=== PATIENT | female | born 2000 | race African-American/Black ===

== ENCOUNTER 2019-01-11 22:17 | Emergency (ER) | payer SELFPAY ==
[~2019-01-11] VITALS: Ht 157 cm; Wt 59.0 kg
[2019-01-11] MEDS ORDERED: LACTATED RINGERS 1,000 ML IV ONE ×2 (22:26→23:05)
[2019-01-11] MEDS ORDERED: ONDANSETRON 4 MG/2 ML (SDV) Z0FRAN IVP ONE (22:30)
[2019-01-11 22:34] LABS: BASOPHILS # (AUTO) 0.1 10^3/uL (0.0-0.1); BASOPHILS % (AUTO) 1 % (0-10); EOSINOPHILS # (AUTO) 0.2 10^3/uL (0.0-0.3); EOSINOPHILS % (AUTO) 2 % (0-10); HEMATOCRIT 35 % (35-52); HEMOGLOBIN 11.2 G/DL (11.5-16.0); LYMPHOCYTES % (AUTO) 33 % (12-44); MEAN CORPUSCULAR HEMOGLOBIN 22 PG (25-34); MEAN CORPUSCULAR HGB CONC 33 G/DL (32-36); MEAN CORPUSCULAR VOLUME 68 FL (80-99); MEAN PLATELET VOLUME 11.7 FL (7.4-10.4); MONOCYTES # (AUTO) 1.2 X 10^3 (0.0-1.0); MONOCYTES % (AUTO) 10 % (0-12); NEUTROPHILS # (AUTO) 6.7 X 10^3 (1.8-7.8); NEUTROPHILS % (AUTO) 55 % (42-75); PLATELET COUNT 357 10^3/uL (130-400); RED CELL DISTRIBUTION WIDTH 16.2 % (10.0-14.5); WHITE BLOOD COUNT 12.1 10^3/uL (4.3-11.0)
[2019-01-11 22:57] LABS: ALANINE AMINOTRANSFERASE 11 U/L (0-55); ALBUMIN 4.5 GM/DL (3.2-4.5); ALKALINE PHOSPHATASE 64 U/L (40-136); AMYLASE 73 U/L (25-125); BILIRUBIN,TOTAL 0.2 MG/DL (0.1-1.0); BUN/CREATININE RATIO 8; CALCIUM 8.9 MG/DL (8.5-10.1); CARBON DIOXIDE 18 MMOL/L (21-32); CHLORIDE 109 MMOL/L (98-107); CREATININE SERUM 0.89 MG/DL (0.60-1.30); GFR ESTIMATED > 60; GLUCOSE 112 MG/DL (70-105); LIPASE 22 U/L (8-78); MAGNESIUM 2.4 MG/DL (1.6-2.4); POTASSIUM 3.1 MMOL/L (3.6-5.0); SALICYLATE < 5.0 MG/DL (5.0-20.0); SODIUM 140 MMOL/L (135-145); TOTAL PROTEIN 7.4 GM/DL (6.4-8.2)
--- NOTE | 2019-01-11 23:03 | ED General ---
General Chief Complaint: Substance Abuse Stated Complaint: ETOH Source of Information: Patient, EMS History of Present Illness Date Seen by Provider: Jan 11, 2019 Time Seen by Provider: 22:23 Initial Comments PT ARRIVES VIA EMS FROM HOME PT IS INTOXICATED PT STATES SHE STARTED DRINKING AROUND 1900 TONIGHT--HAS HAD AT LEAST A LITER OF [place] TONIGHT STATES SHE SMOKED MARIJUANA AT 1500 TODAY PER EMS, PT WENT TO A FRIEND'S HOUSE TONIGHT AND FRIEND HAD REPORTED THAT PT WAS ALREADY DRUNK WHEN SHE ARRIVED THERE. FRIEND DROVE HER HOME, AND PT BEGAN VOMITING IN FRIEND'S CAR, AND VOMITING CONTINUED AFTER SHE GOT HOME PARENTS FOUND HER ON THE BATHROOM FLOOR VOMITING. EMS REPORTED THAT PT VOMITED X 1 IN THEIR PRESENCE. Allergies and Home Medications Allergies Coded Allergies: No Allergy Information Available (Unverified , 01/11/19) Patient Home Medication List Home Medication List Reviewed: Yes Review of Systems Review of Systems Constitutional: other (UNABLE TO OBTAIN RELIABLE HISTORY FROM PT ON ARRIVAL) Gastrointestinal: see HPI, nausea, vomiting : No LMP: Dec 11, 2018 Psychiatric/Neurological: See HPI Past Rejlxbk-Igydqh-Pyusua Hx Past Med/Social Hx: Reviewed and Corrections made Patient Social History Alcohol Use: Occasionally Uses (HEAVY AT TIMES) Recreational Drug Use: Yes (THC) Drug of Choice: THC Recent Foreign Travel: No Contact w/Someone Who Travel: No Past Medical History Surgeries: Yes Adenoidectomy, Tonsillectomy Respiratory: No Cardiac: No Neurological: No : No Reproductive Disorders: No Genitourinary: No Gastrointestinal: No Musculoskeletal: No Endocrine: No HEENT: Yes (S/P T&A) Tonsilitis Cancer: No Psychosocial: No Integumentary: No Blood Disorders: No Physical Exam Vital Signs Capillary Refill : Height, Weight, BMI Height: '" Weight: lbs. oz. kg; BMI Method: General Appearance: Other (KEEPS EYES CLOSED, STRONG ODOR OF ETOH, SHIVERING. PT NOT TALKING ON ARRIVAL) Neck: Normal Inspection Respiratory: Normal Breath Sounds Cardiovascular: Regular Rate, Rhythm, No Murmur Gastrointestinal: Non Tender, Soft Back: No CVA Tenderness Extremity: Normal Inspection Neurologic/Psychiatric: Alert, Oriented x3, No Motor/Sensory Deficits, rag collector II- XII Norm as Tested Skin: Normal Color (PT IS BLACK), Warm/Dry, Other (NO EXTERNAL EVIDENCE OF TRAUMA) Progress/Results/Core Measures Suspected Sepsis SIRS Temperature: Pulse: Respiratory Rate: Laboratory Tests 01/11/19 22:20: White Blood Count 12.1H Blood Pressure / Mean: Laboratory Tests 01/11/19 22:20: Creatinine 0.89, Platelet Count 357, Total Bilirubin 0.2 Results/Orders Lab Results Laboratory Tests Test 01/11/19 22:20 01/11/19 22:59 Range/Units White Blood Count 12.1 H 4.3-11.0 10^3/uL Red Blood Count 5.10 4.35-5.85 10^6/uL Hemoglobin 11.2 L 11.5-16.0 G/DL Hematocrit 35 35-52 % Mean Corpuscular Volume 68 L 80-99 FL Mean Corpuscular Hemoglobin 22 L 25-34 PG Mean Corpuscular Hemoglobin Concent 33 32-36 G/DL Red Cell Distribution Width 16.2 H 10.0-14.5 % Platelet Count 357 130-400 10^3/uL Mean Platelet Volume 11.7 H 7.4-10.4 FL Neutrophils (%) (Auto) 55 42-75 % Lymphocytes (%) (Auto) 33 12-44 % Monocytes (%) (Auto) 10 0-12 % Eosinophils (%) (Auto) 2 0-10 % Basophils (%) (Auto) 1 0-10 % Neutrophils # (Auto) 6.7 1.8-7.8 X 10^3 Lymphocytes # (Auto) 4.0 1.0-4.0 X 10^3 Monocytes # (Auto) 1.2 H 0.0-1.0 X 10^3 Eosinophils # (Auto) 0.2 0.0-0.3 10^3/uL Basophils # (Auto) 0.1 0.0-0.1 10^3/uL Sodium Level 140 135-145 MMOL/L Potassium Level 3.1 L 3.6-5.0 MMOL/L Chloride Level 109 H 98-107 MMOL/L Carbon Dioxide Level 18 L 21-32 MMOL/L Anion Gap 13 5-14 MMOL/L Blood Urea Nitrogen 7 7-18 MG/DL Creatinine 0.89 0.60-1.30 MG/DL Estimat Glomerular Filtration Rate > 60 BUN/Creatinine Ratio 8 Glucose Level 112 H 70-105 MG/DL Calcium Level 8.9 8.5-10.1 MG/DL Corrected Calcium 8.5 8.5-10.1 MG/DL Magnesium Level 2.4 1.6-2.4 MG/DL Total Bilirubin 0.2 0.1-1.0 MG/DL Aspartate Amino Transf (AST/SGOT) 25 5-34 U/L Alanine Aminotransferase (ALT/SGPT) 11 0-55 U/L Alkaline Phosphatase 64 40-136 U/L Total Protein 7.4 6.4-8.2 GM/DL Albumin 4.5 3.2-4.5 GM/DL Amylase Level 73 25-125 U/L Lipase 22 8-78 U/L Serum Test, Qualitative NEGATIVE NEGATIVE Salicylates Level < 5.0 L 5.0-20.0 MG/DL Acetaminophen Level < 10 L 10-30 UG/ML Serum Alcohol 204 H <10 MG/DL Urine Color YELLOW Urine Clarity CLEAR Urine pH 6.5 5-9 Urine Specific [place] 1.010 L 1.016-1.022 Urine Protein NEGATIVE NEGATIVE Urine Glucose (UA) NEGATIVE NEGATIVE Urine Ketones NEGATIVE NEGATIVE Urine Nitrite NEGATIVE NEGATIVE Urine Bilirubin NEGATIVE NEGATIVE Urine Urobilinogen 0.2 < = 1.0 MG/DL Urine Leukocyte Esterase NEGATIVE NEGATIVE Urine RBC (Auto) NEGATIVE NEGATIVE Urine RBC NONE /HPF Urine WBC NONE /HPF Urine Squamous Epithelial Cells RARE /HPF Urine Crystals NONE /LPF Urine Bacteria TRACE /HPF Urine Casts NONE /LPF Urine Mucus NEGATIVE /LPF Urine Culture Indicated NO Urine Opiates Screen NEGATIVE NEGATIVE Urine Oxycodone Screen NEGATIVE NEGATIVE Urine Methadone Screen NEGATIVE NEGATIVE Urine Propoxyphene Screen NEGATIVE NEGATIVE Urine Barbiturates Screen NEGATIVE NEGATIVE Ur Tricyclic Antidepressants Screen NEGATIVE NEGATIVE Urine Phencyclidine Screen NEGATIVE NEGATIVE Urine Amphetamines Screen NEGATIVE NEGATIVE Urine Methamphetamines Screen NEGATIVE NEGATIVE Urine Benzodiazepines Screen NEGATIVE NEGATIVE Urine Cocaine Screen NEGATIVE NEGATIVE Urine Cannabinoids Screen POSITIVE H NEGATIVE My Orders Orders - MONROE DE DO Chest 1 View, Ap/Pa Only (01/11/19 22:26) Acetaminophen (01/11/19 22:26) Alcohol (01/11/19 22:26) Amylase (01/11/19 22:26) Cbc With Automated Diff (01/11/19 22:26) Comprehensive Metabolic Panel (01/11/19 22:26) Drug Screen Stat (Urine) (01/11/19 22:26) Hcg,Qualitative Serum (01/11/19 22:26) Lipase (01/11/19 22:26) Magnesium (01/11/19 22:26) Salicylate (01/11/19 22:26) Ua Culture If Indicated (01/11/19:) Catheter(Urinary) Insert & Ass 03,15 (01/11/19 22:26) Monitor-Rhythm Ecg Trace Only (01/11/19 22:26) Ondansetron Injection (Zofran Injectio (01/11/19 22:30) Ed Iv/Invasive Line Start (01/11/19 22:26) Lactated Ringers (Lr 1000 Ml Iv Solution (01/11/19 22:26) Ed Iv/Invasive Line Start (01/11/19 23:05) Lactated Ringers (Lr 1000 Ml Iv Solution (01/11/19 23:05) Medications Given in ED Current Medications Medications Dose Ordered Sig/Daisy Route Start Time Stop Time Status Last Admin Dose Admin Lactated Ringer's 1,000 ml @ 0 mls/hr Q0M ONCE IV 01/11/19 22:26 01/11/19 22:29 DC 01/11/19 22:49 999 MLS/HR Lactated Ringer's 1,000 ml @ 0 mls/hr Q0M ONCE IV 01/11/19 23:05 01/11/19 23:06 DC 01/11/19 23:37 999 MLS/HR Ondansetron HCl 4 mg ONCE ONCE IVP 01/11/19 22:30 01/11/19 22:31 DC 01/11/19 22:49 4 MG Vital Signs/I&O 01/12/19 00:00 Intake Total 1000 ml Balance 1000 ml Capillary Refill : Progress Note : Progress Note SHORTLY AFTER ARRIVAL, PT BEGAN TALKING. SPEECH IS CLEAR PT THEN BEGAN TO CRY UNCONTROLLABLY. THEN BEGAN TO CRY WORSE WHEN MOM CAME INTO ROOM. PT REPEATING "I'M SORRY" NO VOMITING DURING ER STAY. NAUSEA IS GONE WITH ZOFRAN. GIVEN 3 LITERS OF FLUIDS SPEECH IS CLEAR AND GAIT FAIRLY STEADY AT DISMISSAL. MOM FEELS COMFORTABLE TAKING PT HOME. Departure Impression Primary Impression: Alcohol intoxication Additional Impression: Marijuana use Disposition: 01 HOME, SELF-CARE Condition: Improved Departure-Patient Inst. Referrals: UNKNOWN (PCP/Family) Primary Care Physician Patient Instructions: ALCOHOL AND SUBSTANCE ABUSE, Alcohol Abuse and Alcoholism (DC), Alcohol Use - When Is Drinking a Problem?, Effects of Alcohol on Your Health, Marijuana Use and Addiction (DC) Add. Discharge Instructions: HOME, REST LOTS OF CLEAR LIQUIDS, ESPECIALLY WATER AND GATORADE TYLENOL NEEDED FOR PAIN FOLLOW UP WITH YOUR DR NEEDED All discharge instructions reviewed with patient and/or family. Voiced understanding. MONROE DE DO Jan 11, 2019 23:03 POS
[2019-01-11 23:06] LABS: ACETAMINOPHEN < 10 UG/ML (10-30)
[2019-01-11 23:08] LABS: BILIRUBIN,URINE NEGATIVE (NEGATIVE); CLARITY,URINE CLEAR; COLOR,URINE YELLOW; GLUCOSE, URINE (UA) NEGATIVE (NEGATIVE); KETONES,URINE NEGATIVE (NEGATIVE); LEUKOCYTE ESTERASE ,URINE NEGATIVE (NEGATIVE); NITRITE,URINE NEGATIVE (NEGATIVE); PH,URINE 6.5 (5-9); PROTEIN,URINE NEGATIVE (NEGATIVE)
[2019-01-11 23:14] LABS: BACTERIA,URINE TRACE /HPF; SQUAMOUS EPITHELIAL CELL,UR RARE /HPF
[2019-01-11 23:20] LABS: AMPHETAMINE SCREEN, URINE NEGATIVE (NEGATIVE); BARBITURATE SCREEN URINE NEGATIVE (NEGATIVE); BENZODIAZEPINES SCREEN URINE NEGATIVE (NEGATIVE); CANNABINOID SCREEN, URINE POSITIVE (NEGATIVE); COCAINE SCREEN URINE NEGATIVE (NEGATIVE); METHADONE STAT NEGATIVE (NEGATIVE); METHAMPHETAMINE SCREEN URINE S NEGATIVE (NEGATIVE); OPIATE SCREEN URINE NEGATIVE (NEGATIVE); OXYCODONE STAT NEGATIVE (NEGATIVE); PROPOXYPHENE STAT NEGATIVE (NEGATIVE); TRICYCLIC ANTIDEPRESSANTS SCRE NEGATIVE (NEGATIVE)
--- NOTE | 2019-01-12 07:16 | Diagnostic Imaging Report ---
INDICATION: Substance abuse Portable chest 11:14 PM Heart size and pulmonary vascularity are normal. Lungs are clear. There are no effusions or pneumothoraces. IMPRESSION: Negative chest Dictated by: Dictated on workstation # [id number]
== END 2019-01-12 00:06 | disposition home or self-care (01) ==
LOC: EDBD 22:18 → ER 22:18
DX: F10.129 Alcohol abuse with intoxication, unspecified (principal); F12.90 Cannabis use, unspecified, uncomplicated; Z90.89 Acquired absence of other organs; Y90.7 Blood alcohol level of 200-239 mg/100 ml
CPT/HCPCS: 36415; 51701; 71045; 80053; 80306; 80320; 80329; 81000; 82150; 83690; 83735; 84703; 85025; 93041; 96361; 96374